=== PATIENT | female | born 1955 | race Caucasian/White ===

== ENCOUNTER 2016-11-01 14:25 | Inpatient (IN) ==
[2016-11-01] MEDS ORDERED: Sodium Chloride 0.9% 1,000 ML PRIMARY IV ONE (14:40)
[2016-11-01] MEDS ORDERED: ONDANSETRON 4 MG/2 ML VIAL IVP ONE (14:40)
[2016-11-01] MEDS ORDERED: NORMAL SALINE 10 ML SYRINGE FLUSH IVP PRN ×3 (14:40→20:32)
[2016-11-01] MEDS ORDERED: MORPHINE SULFATE 4 MG/1 ML IVP ONE ×3 (14:40→16:32)
--- NOTE | 2016-11-01 14:50 | PDOC ---
Abdomen/Flank HPI - General Chief Complaint: Abdomen Pain Stated Complaint: ABD PAIN Date Seen by Provider: 11/01/16 Time Seen by Provider: 14:47 - History of Present Illness Initial Comments: This patient is a very nice 61-year-old woman who presents to the emergency department with increasing low abdominal pain through the day today. Apparently this morning she felt well and went about her daily routine had a bowel movement in the morning which is not uncommon for her that began to have some pain after this bowel movement. She tried to have another bowel movement thinking that it might be related to this and did but had increasing pain thereafter. Her pain is continued to increase through the afternoon and she decided to come into the emergency department for evaluation. She has not noticed any dysuria. She's not had any history of abdominal surgeries at all. She has never had colonoscopy or upper endoscopy. She denies any nausea or vomiting with this. She denies any right upper quadrant pain and focuses all infraumbilical and low abdominal as far as her symptoms. - Patient Home Medications Home Medications: Home Medications Losartan [Cozaar] 25 mg PO DAILY 11/01/16 metFORMIN Tab [Glucophage Tab] 850 mg PO DAILY 11/01/16 - Patient Allergies Allergies/Adverse Reactions: Allergies Allergy/AdvReac Type Severity Reaction Status Date / Time Penicillins Allergy NOT Verified 11/01/16 14:35 APPLICABLE Past Medical History - heen HEENT History: Denies History Cardiovascular History: Denies History Respiratory History: Denies History Gastrointestinal History: Denies History Genitourinary History: Denies History Musculoskeletal History: Denies History Prosthesis or Implant: (joint replacement) Neurological History: Denies History Psychiatric History: Denies History Past Medical History Reviewed: Reviewed - No Changes ROS - Limitations ROS Limitations: No Limitations Constitution: REPORTS: Denies Symptoms Cardiovascular: REPORTS: Denies Cardiac Symptoms Respiratory: REPORTS: Denies Resp Symptoms Abdominal/Flank Pain PE - General Appearance General Appearance: POSITIVE: Alert, Cooperative, No Acute Distress - HEENT HEENT: POSITIVE: Head Inspection Nml, Eyes Inspection Nml - Respiratory Respiratory: POSITIVE: No Respiratory Distress, Breath Sounds Normal - Cardiovascular Cardiovascular: POSITIVE: Regular Rate and Rhythm, Heart Sounds Normal - Abdomen Additional Abdominal Details: She has substantial guarding and tenderness with palpation of the low abdomen below the umbilicus both right and left lower quadrants. Bowel sounds are present. No significant distention noted. Abdomen Progress - Results Reviewed by me Xrays/CTs/US Reviewed by me: Yes Discussed with Radiologist: Yes Radiology Findings: CT of the abdomen shows free air pockets throughout the low abdomen. Lab Results Reviewed: Yes Lab Results:: Laboratory Results 11/01/16 Range/Units 15:02 WBC 11.42 H (4.8-10.8) 10^3/uL RBC 4.57 (4.20-5.40) 10^6/uL Hgb 13.6 (12.0-16.0) g/dL Hct 41.3 (37.0-47.0) % MCV 90.4 (81-99) FL MCH 29.8 (27-31) PG MCHC 32.9 L (33-37) g/dL RDW Std Deviation 44.3 (39-50) fL RDW Coeff of Berta 13.8 (11.5-14.5) % Plt Count 271 (140-350) 10*3/uL MPV 9.2 (7.4-12.2) FL Immature Gran % (Auto) 0.2 (0-5) % Neut % (Auto) 81.4 H (50-80) % Lymph % (Auto) 14.3 (10-50) % [place] % (Auto) 2.1 L (5-15) % Eos % (Auto) 1.8 (0-8) % Baso % (Auto) 0.2 (0-1) % Immature Gran # (Auto) 0.02 10*3/UL Neut # (Auto) 9.30 10*3/UL Lymph # (Auto) 1.63 10*3/uL [place] # (Auto) 0.24 L (0.3-0.8) 10*3/UL Eos # (Auto) 0.21 10*3/UL Baso # (Auto) 0.02 10*3/UL WBC Morphology Comment Normal morphology (NORM) Plt Morphology Comment Normal morphology (NORM) RBC Morph Comment Normal morphology (NORM) Sodium 141 (135-145) meq/L Potassium 4.0 (3.8-5.2) meq/L Chloride 104 (98-112) meq/L Carbon Dioxide 24 (23-33) meq/L Anion Gap 13 (5-20) BUN 21 (7-22) mg/dL Creatinine 0.8 (0.50-1.20) mg/dL Estimated GFR > 60 (>60 ml/min/1.73m(2)) BUN/Creatinine Ratio 26.25 H (6-20) Glucose 125 H (78-110) mg/dL Calculated Osmolality 295.0 H (267-292) mOsm/kg Calcium 10.0 (8.7-10.7) mg/dL Total Bilirubin 0.6 (0.3-1.2) mg/dL AST 35 (8-39) IU/L ALT 36 (9-52) IU/L Alkaline Phosphatase 96 (38-126) IU/L Total Protein 7.3 (6.1-8.0) g/dL Albumin 4.4 (3.5-4.8) g/dL Globulin 2.9 (2.50-4.10) g/dL Albumin/Globulin Ratio 1.50 (1.3-2.0) mg/g Amylase 87 (30-110) U/L Lipase 80 (23-300) IU/L - Patient's Progress MDM / ED Course: Patient was having substantial abdominal pain CT scan of the abdomen and pelvis was ordered in addition to some lab work. Lab work shows an elevated white blood cell count CT scan shows free air in the abdomen. Patient was given multiple doses of morphine to try to control her pain and general surgery is been consulted. Patient will be admitted to the hospital for further management potentially for surgical intervention. Patient Care Time - Estimated PCT Patient Care Time (In Minutes): 45 Vital Signs - Recent Vital Signs Vital Signs: Vital Signs (Last 8 hours) Temp Pulse Resp BP Pulse Ox 11/01/16 14:25 96.6 F L 74 20 113/64 94 - VS Reviewed Vital Signs Reviewed: Yes Discharge Clinical Impression: Perforated abdominal viscus Discharge Disposition: Admit to Inpatient Condition: Stable Follow Up With: NONE,NONE [Primary Care Provider] - Date Decision to Admit to Inpatient: 11/01/16 Time Decision to Admit to Inpatient: 17:44
[2016-11-01 15:06] LABS: BASOPHILS # (AUTO) 0.02 10*3/UL; BASOPHILS % (AUTO) 0.2 % (0-1); EOSINOPHILS # (AUTO) 0.21 10*3/UL; EOSINOPHILS % (AUTO) 1.8 % (0-8); Hematocrit [HCT] 41.3 % (37.0-47.0); Hemoglobin [HGB] 13.6 g/dL (12.0-16.0); LYMPHOCYTES # (AUTO) 1.63 10*3/uL; MEAN CORPUSCULAR HEMOGLOBIN 29.8 PG (27-31); MEAN CORPUSCULAR HGB CONC 32.9 g/dL (33-37); MEAN CORPUSCULAR VOLUME 90.4 FL (81-99); MEAN PLATELET VOLUME 9.2 FL (7.4-12.2); MONOCYTES # (AUTO) 0.24 10*3/UL (0.3-0.8); MONOCYTES % (AUTO) 2.1 % (5-15); NEUTROPHILS % (AUTO) 81.4 % (50-80); RED BLOOD COUNT 4.57 10^6/uL (4.20-5.40)
[2016-11-01 15:08] LABS: PLATELET MORPHOLOGY COMMENT NORMAL MORPHOLOGY (NORM); RBC MORPHOLOGY COMMENT NORMAL MORPHOLOGY (NORM); WBC MORPHOLOGY COMMENT NORMAL MORPHOLOGY (NORM)
[2016-11-01 15:13] LABS: BLOOD UREA NITROGEN 21 mg/dL (7-22); BUN/CREATININE RATIO 26.25 (6-20); SERUM ALBUMIN 4.4 g/dL (3.5-4.8)
[2016-11-01 15:14] LABS: LIPASE 80 IU/L (23-300)
[2016-11-01] MEDS ORDERED: Ertapenem Inj 1 GM in Sodium Chloride 0.9% 100 ML IV ONE (17:20)
--- NOTE | 2016-11-01 17:41 | DI ---
CT ABDOMEN SCAN WITH IV CONTRAST, 11/01/2016 2:53 PM : Clinical History: Lower abdominal pain. Previous Exam: None at this facility. Scans are performed from the lower lung bases through the liver and kidneys with IV contrast. 95 ml o f Isovue 300 was injected IV. No oral or rectal contrast was ordered. The lung bases are clear. Mild fatty infiltration is present in the liver diffusely. The liver is oth erwise normal. The gallbladder is grossly normal. There is free air in the upper abdomen. The stomach , duodenum, and proximal small bowel are normal. There is no abnormality of the spleen, pancreas, and adrenal glands. Both kidneys are normal in size, shape, position and contour. There is no hydronephr osis or hydroureter. No renal or ureteral calculi are present. There are no abnormal retrocrural or p eriaortic nodes. No ascites is present. READIN. There is free air in the upper abdomen without evidence of ascites. The stomach, duodenum, and pr oximal small bowel have a normal appearance. 2. Mild fatty infiltration of the liver. CT PELVIS SCAN WITH IV CONTRAST, 11/01/2016 2:53 PM: Clinical History: See above. Previous Exam: None at this facility. Scans are performed from just superior to the umbilicus to the symphysis pubis with IV contrast. This is the same bolus of contrast used for the CT scans of the abdomen. Scans through the lower abdomen and pelvis show no masses. There are multiple small gas bubbles withi n the mesentery in the lower abdomen and pelvic regions. A small amount of ascites is present in the pelvis. There is no adenopathy. The appendix is normal. There are loops of small bowel in the posteri or aspect of the pelvis that may show slight inflammation but there is no dilatation. The colon shows no evidence of diverticulitis. There is a small umbilical hernia through which only mesenteric fat h as herniated. The patient is status post hysterectomy and bilateral salpingo-oophorectomy. READIN. There is a small amount of free air and free fluid in the pelvis. No evidence of diverticulitis i s noted. The appendix is normal. 2. There is a loop of small bowel in the posterior aspect of the pelvis that may show minimal increa sed enhancement but there is no periserosal inflammatory change.
[2016-11-01] MEDS ORDERED: MIDAZOLAM 5 MG/1 ML ONE (18:27)
[2016-11-01] MEDS ORDERED: KETAMINE 100 MG/1 ML - 5 ML ONE (18:27)
[2016-11-01] MEDS ORDERED: fentaNYL Inj 250 MCG/5 ML VIAL ONE ×2 (18:27→19:25)
[2016-11-01] MEDS ORDERED: Sodium Chloride 0.9% vial 10 ML ONE ×2 (18:28→19:00)
[2016-11-01] MEDS ORDERED: ROCURONIUM 10 MG/1 ML - 5 ML VIAL IVP ONE (18:30)
[2016-11-01] MEDS ORDERED: Lactated Ringers 1,000 ML PRIMARY IV SCH ×2 (18:45→20:45)
--- NOTE | 2016-11-01 18:45 | CONSULT ---
Consult Note - Consult Consult Date: 11/01/16 Reason for Consult: PreOp Consulation : General Surgery Requesting Physician: Dr. Mueller Primary Care Provider: NONE NONE - History of Present Illness History of Present Illness: Patient is a 61-year-old [place] out [place] staying at a local camping area. She felt well this morning when she woke up. She had a normal yogurt breakfast. She had a bowel movement and voided. She went about some activities and started feeling like she needs to go the bathroom again. She reports she urinated and had a bowel movement again. It breakfast a little bit later in the morning. She noticed some mild discomfort in her lower abdomen. She then developed increasing pain. She had another bowel movement and now her pain increased significantly. She had a very uncomfortable ride to the hospital. She was evaluated in the emergency room. Her white count was elevated at 11,400. CT was done which shows free air within her abdomen. She has been given a gram of Invanz. She has been given 3 different doses of 4 mg of morphine. The morphine does not stop her pain. Patient denies reflux or dyspepsia. She does take Aleve approximately every other day. She has never been on a proton pump inhibitor or H2 aldo. She is also not had a colonoscopy. She has had a vaginal hysterectomy. Her ovaries are in place. At the present time the patient's reports her main pain is behind the umbilicus. She's had no nausea, vomiting, fever, chills, diarrhea, or constipation. She's never had a pain like this before. She denies vaginal discharge. She denies urinary tract infection symptoms. Reviewing the CT scan with the radiologist shows the bubbles of free air in the abdomen. The largest ones are at and above the umbilicus. There are smaller bubbles of free air in the lower abdomen. There is no free air around her stomach or duodenum. There is some fluid around her appendix. Appendix is normal in size. There is no free air near her appendix. She has a few diverticuli but there is no significant inflammation around the sigmoid colon. There is possibly a loop of abnormal small bowel. There are no obvious inflammatory changes. It is unclear where the free air is coming from. Review of Systems - Constitutional Constitutional: REPORTS: General Health Excellent - Gastrointestinal Gastrointestinal / Abdominal: REPORTS: Abdominal Pain, See HPI Past Medical History Medical History: Elevated A1c. Hypertension. Surgical History: Vaginal hysterectomy, ovaries in place. Right total knee. Left second hammer toe surgery. Tobacco Use: Never Smoker Substance Use Type: None Alcohol Use: Occasionally Medication / Allergies Home Medications: Home Medications Medication Instructions Recorded Confirmed Type Losartan [Cozaar] 25 mg PO DAILY 11/01/16 11/01/16 History metFORMIN Tab [Glucophage Tab] 850 mg PO DAILY 11/01/16 11/01/16 History Allergies/Adverse Reactions: Allergies Allergy/AdvReac Type Severity Reaction Status Date / Time Penicillins Allergy NOT Verified 11/01/16 14:35 APPLICABLE Exam - Vitals Vital Signs: Vital Signs Temperature 96.6 F Temperature Source Temporal Artery Scan Pulse Rate [Pulse Oximeter] 74 Respiratory Rate 20 Blood Pressure [Left Arm] 113/64 Pulse Ox 94 Oxygen Delivery Method Room Air Height 5 ft 10 in Weight 99.79 kg - General General Appearance: POSITIVE: No Acute Distress, Cooperative - Respiratory Respiratory Exam: POSITIVE: Clear to Auscultation - Bilaterally, Breathing Non Labored - Cardiovascular Cardiovascular Exam: POSITIVE: RRR, Systolic Murmur - GI/Abdominal GI/Abdominal Exam: POSITIVE: Non Distended, Firm, Guarding, Diminished Bowel Sounds, No Masses, Rebound Additional GI/Abdominal Exam Details: Most tenderness is below her umbilicus. She is diffusely tender throughout the lower abdomen. There is voluntary guarding and rebound. Upper abdomen much less tender. - Rectal Rectal Exam: POSITIVE: Deferred - Neurological Neurological Exam: POSITIVE: Alert, Oriented x 3 - Psychiatric Psychiatric Exam: POSITIVE: Normal Affect, Normal Mood - Integumentary Integumentary Exam: POSITIVE: Normal Color, Warm, Dry Results - Labs CBC and BMP: 11/01/16 15:02 11/01/16 15:02 Labs - Last 24 Hours: Laboratory Results 11/01/16 Range/Units 15:02 WBC 11.42 H (4.8-10.8) 10^3/uL RBC 4.57 (4.20-5.40) 10^6/uL Hgb 13.6 (12.0-16.0) g/dL Hct 41.3 (37.0-47.0) % MCV 90.4 (81-99) FL MCH 29.8 (27-31) PG MCHC 32.9 L (33-37) g/dL RDW Std Deviation 44.3 (39-50) fL RDW Coeff of Berta 13.8 (11.5-14.5) % Plt Count 271 (140-350) 10*3/uL MPV 9.2 (7.4-12.2) FL Immature Gran % (Auto) 0.2 (0-5) % Neut % (Auto) 81.4 H (50-80) % Lymph % (Auto) 14.3 (10-50) % [place] % (Auto) 2.1 L (5-15) % Eos % (Auto) 1.8 (0-8) % Baso % (Auto) 0.2 (0-1) % Immature Gran # (Auto) 0.02 10*3/UL Neut # (Auto) 9.30 10*3/UL Lymph # (Auto) 1.63 10*3/uL [place] # (Auto) 0.24 L (0.3-0.8) 10*3/UL Eos # (Auto) 0.21 10*3/UL Baso # (Auto) 0.02 10*3/UL WBC Morphology Comment Normal morphology (NORM) Plt Morphology Comment Normal morphology (NORM) RBC Morph Comment Normal morphology (NORM) Sodium 141 (135-145) meq/L Potassium 4.0 (3.8-5.2) meq/L Chloride 104 (98-112) meq/L Carbon Dioxide 24 (23-33) meq/L Anion Gap 13 (5-20) BUN 21 (7-22) mg/dL Creatinine 0.8 (0.50-1.20) mg/dL Estimated GFR > 60 (>60 ml/min/1.73m(2)) BUN/Creatinine Ratio 26.25 H (6-20) Glucose 125 H (78-110) mg/dL Calculated Osmolality 295.0 H (267-292) mOsm/kg Calcium 10.0 (8.7-10.7) mg/dL Total Bilirubin 0.6 (0.3-1.2) mg/dL AST 35 (8-39) IU/L ALT 36 (9-52) IU/L Alkaline Phosphatase 96 (38-126) IU/L Total Protein 7.3 (6.1-8.0) g/dL Albumin 4.4 (3.5-4.8) g/dL Globulin 2.9 (2.50-4.10) g/dL Albumin/Globulin Ratio 1.50 (1.3-2.0) mg/g Amylase 87 (30-110) U/L Lipase 80 (23-300) IU/L - Imaging Status: Image Reviewed by Me (And discussed with the radiologist.), Report Reviewed by Me Assessment and Plan - Patient Problems (1) Perforated abdominal viscus Current Visit: Yes Status: Acute Priority: High Diagnosis Date: 11/01/16 Comment: The etiology of her free air is unclear. It is unclear based on her clinical history and physical examination as well as her CT scan. Most likely possibilities a perforated appendicitis, perforated peptic ulcer, perforated small bowel, or perforated diverticular disease. We will proceed with laparoscopy/laparotomy as soon as possible. The procedure has been discussed with the patient in complete yet simple terms including benefits, risks, and alternatives. All questions have been answered. Informed consent has been obtained. She understands she may have a temporary colostomy if this is perforated diverticular disease. She has also been given the opportunity to be transferred to a tertiary care center where all of her procedure might be done laparoscopically. My plan is to do a laparoscopy to identify the source of the free air and then make an appropriate incision to deal with it unless it is a perforated appendix which will be removed laparoscopically.
[2016-11-01] MEDS ORDERED: BUPIVACAINE 0.25% W/ EPI - 10 ML VIAL ONE (19:01)
[2016-11-01] MEDS ORDERED: ESMOLOL HCL 100 MG/10 ML VIAL ONE (19:23)
[2016-11-01] MEDS ORDERED: ePHEDrine Inj 50 MG/ML AMP ONE (19:34)
[2016-11-01] MEDS ORDERED: REMIFENTANIL 1 MG/1 ML IV ONE (20:06)
[2016-11-01] MEDS ORDERED: Prochlorperazine Edisylate Inj 10mg/2ml vial IVP PRN (20:32)
[2016-11-01] MEDS ORDERED: ONDANSETRON 4 MG/2 ML VIAL IVP PRN ×2 (20:32→22:56)
[2016-11-01] MEDS ORDERED: fentaNYL Inj 100 MCG/2 ML VIAL IVP PRN (20:32)
[2016-11-01] MEDS ORDERED: Ondansetron ODT Tab 8 MG TAB PO PRN (20:32)
[2016-11-01] MEDS ORDERED: Sodium Chloride 0.9% 2,000 ML ONE (20:37)
[2016-11-01] MEDS ORDERED: METOPROLOL TARTRATE 5 MG/5 ML VIAL ONE (20:45)
[2016-11-01] MEDS ORDERED: NEOSTIGMINE 1 MG/1 ML - 10 ML ONE (21:28)
[2016-11-01] MEDS ORDERED: GLYCOPYRROLATE 0.2 MG/1 ML VIAL ONE (21:29)
[2016-11-01] MEDS ORDERED: KETOROLAC 30 MG/1 ML VIAL ONE (21:33)
--- NOTE | 2016-11-01 21:56 | GEN.OPNOTE ---
Operative Note Surgery Date: 11/01/16 Preoperative Diagnosis: Perforated viscus with free intra-abdominal air. Postoperative Diagnosis: Perforated diverticular disease. Procedure: #1 diagnostic laparoscopy. #2 Sigmoid colectomy with end colostomy and closure of the distal segment-Talib procedure. #3 appendectomy secondary to fecaliths. Surgeon: Raimundo Brown MD Jockey Agent: Matheus Buenrostro MD Anesthesia Provider: Michaela Hsieh CRNA Anesthesia Type: General Estimated Blood Loss (mL): 200 Fluids: 4000 mL of crystalloid. Patient had a gram of Invanz at 6 PM. Patient got 30 mg of IV Toradol at the end of the procedure. Urine output 80 mL during the procedure. Pathology: Specimens to pathology included the resected sigmoid colon as well as the appendix. Indications: Acute abdominal tenderness with acute surgical abdomen. CT scan shows free air. Findings: Perforated diverticular disease. Free intraperitoneal pus. Appendix with multiple fecaliths. Status post hysterectomy. Complications: None. Operative Summary: The patient was taken to the operating room and placed on the operating table in the supine position. Following the induction of general anesthetic the abdomen was prepped and draped in a sterile fashion. Surgical timeout was done. The infraumbilical area was infiltrated with 1/4% Marcaine with epinephrine. A small incision was made. The abdominal wall was elevated. A Veress needle was placed without apparent injury and a pneumoperitoneum was induced. A 10 mm trocar was placed under direct visualization. The laparoscope was inserted. A 5 mm trocar was placed in the suprapubic area after infiltration with 1/4% Marcaine with epinephrine. The upper abdomen showed no evidence of any inflammatory changes or free fluid. The anterior wall of the stomach and duodenum was unremarkable. The appendix itself was unremarkable. There was pus in the pelvis. The small bowel showed no evidence of disease other than serosal inflammatory changes from the pus. At this point I felt this was secondary to perforated diverticular disease. The laparoscope was removed. The CO2 was removed. All trochars were removed and we prepared for exploratory laparotomy. A midline incision was made in the lower abdomen. This was extended above the umbilicus. This was carried down through the thick subcutaneous tissue with electrocautery. The fascia was incised in the midline with electrocautery. The peritoneum was elevated and incised. A large Titi retractor was placed. Appropriate packing was done. Irrigation was performed. The small bowel was removed from the pelvis. The appendix was normal but there were multiple fecaliths. I opted to do an appendectomy. The mesoappendix was taken down by serially clamping, dividing, and ligating the mesoappendix. A clamp was placed across the base of the appendix. It was unclamped and moved distally. The base of the appendix was tied off with 0 Vicryl. The appendix was amputated. The stump was cauterized. The stump was inverted into the cecum with a Z- plasty suture of 2-0 Vicryl. Attention was turned to the sigmoid colon. There was what appeared to be a single perforation with pus and air leaving the bowel. There was a small area of necrosis. The rest of the sigmoid colon looked fine. The sigmoid colon was mobilized by taking down the peritoneal reflection. Approximately a 4 inch piece of colon was isolated. It was cleared proximally of the paracolonic fatty tissue. The proximal bowel was transected with a linear stapler. The distal transection site was chosen. It was cleared of the paracolonic tissue. A linear stapler was placed across it and closed and fired. A clamp was placed on the proximal bowel. The colon was transected sharply. The mesocolon was taken down by serially clamping dividing and ligating the colonic vessels with 0 Vicryl sutures. The specimen was removed from the operative field. The distal stump was tacked to the left lateral peritoneum with a suture of 2-0 Prolene for ease of identification in the future. There is some adhesions from the distal colon to fallopian tubes and the vaginal stump. The proximal colon was mobilized by taking down the peritoneal reflection. There was adequate length to pass it through the abdominal wall. Extensive irrigation was performed. I believe I used 7 L of fluid to irrigate the abdomen. Hemostasis was assured. The Titi retractor was removed. A colostomy site was chosen. A [place] of skin was removed. A plug of subcutaneous tissue was removed down to the fascia. The fascia was incised in a cruciate fashion. The descending colon was passed through the fascial defect and there was adequate length to perform a colostomy. Final irrigation and suctioning were performed. Final check for hemostasis was done. The bowel was returned to a relative anatomic position and covered with the omentum. The midline fascia was closed with running #1 Prolene. A suture was started both superiorly and inferiorly. These were tied independently. The subcutaneous tissue was extensively irrigated. The wound was closed with surgical mikey followed by an appropriate dressing. Attention was turned to the colostomy site. The staple line was excised. The colostomy was matured using 3-0 Vicryl sutures. An appropriate appliance was placed. The patient tolerated all aspects of the procedure well without complication. She was taken to the recovery room in stable condition. All counts were correct. Patient Problems - Patient Problem List (1) Perforated abdominal viscus Current Visit: Yes Status: Acute Diagnosis Date: 11/01/16 Priority: High
[2016-11-01] MEDS ORDERED: Lactated Ringers 1,000 ML PRIMARY IV ONE (22:09)
[2016-11-01] MEDS ORDERED: HYDROmorphone 2 MG/1 ML ONE (22:12)
[2016-11-01] MEDS: HYDROmorphone 2 MG/1 ML IVP PRN ×3 (22:14→22:26)
[2016-11-01] MEDS ORDERED: NALOXONE 0.4 MG/1 ML VIAL IVP PRN (22:56)
[2016-11-01] MEDS ORDERED: PCA-Peripheral (Reflex Set) 1 EACH MIS IV PRN (22:56)
[2016-11-02] MEDS: D5-1/2NS + 20mEq KCL 1,000 ML PRIMARY IV SCH ×3 (00:19→21:18)
[2016-11-02] MEDS: MORPHINE PCA 1 MG/ML IV SCH ×2 (00:20→10:24)
[2016-11-02] MEDS: KETOROLAC 15 MG/1 ML VIAL IVP SCH ×4 (03:09→21:15)
[2016-11-02 04:59] LABS: BASOPHILS # (AUTO) 0.06 10*3/UL; BASOPHILS % (AUTO) 0.3 % (0-1); EOSINOPHILS # (AUTO) 0 10*3/UL; EOSINOPHILS % (AUTO) 0 % (0-8); Hematocrit [HCT] 36.2 % (37.0-47.0); Hemoglobin [HGB] 12.1 g/dL (12.0-16.0); LYMPHOCYTES # (AUTO) 1.16 10*3/uL; MEAN CORPUSCULAR HEMOGLOBIN 30.7 PG (27-31); MEAN CORPUSCULAR HGB CONC 33.4 g/dL (33-37); MEAN CORPUSCULAR VOLUME 91.9 FL (81-99); MEAN PLATELET VOLUME 9.6 FL (7.4-12.2); MONOCYTES # (AUTO) 0.49 10*3/UL (0.3-0.8); MONOCYTES % (AUTO) 2.5 % (5-15); NEUTROPHILS # (AUTO) 17.98 10*3/UL; RED BLOOD COUNT 3.94 10^6/uL (4.20-5.40)
[2016-11-02 05:13] LABS: BLOOD UREA NITROGEN 22 mg/dL (7-22); SERUM ALBUMIN 3.6 g/dL (3.5-4.8)
[2016-11-02 05:25] LABS: PLATELET MORPHOLOGY COMMENT NORMAL MORPHOLOGY (NORM); RBC MORPHOLOGY COMMENT NORMAL MORPHOLOGY (NORM); WBC MORPHOLOGY COMMENT NORMAL MORPHOLOGY (NORM)
[2016-11-02] MEDS: Pantoprazole Inj 40 MG in Normal Saline Flush 10 ML IVP SCH (08:17)
--- NOTE | 2016-11-02 10:15 | PDOC(PROG) ---
Subjective Post Op Day: 1 Pain Management: Peripheral DESIGN VERIFICATION ENGINEER Lamas Catheter: Yes Flatus: No Diet: Clear Liquids Ambulating: Yes Date and Time of Service: 11/02/2016 10 AM Interval History: Reports she feels much better than preop. No specific complaints. Pain when she moves. Overall comfortable and resting. Has ambulated several times. Is working on incentive spirometer. Tolerating ice chips. White count is increased to 19,000+. Afebrile. Patient was noted to have a systolic ejection murmur in the emergency room yesterday. It persists today. She reports she had a cardiac echo a year ago. She did not know she had a cardiac murmur. We will get the results of the cardiac echo from the [facility]. It is probably a functional murmur. If he didn't have a murmur on her last cardiac echo she will need follow-up when she returns home. Objective : Data - Labs CBC and BMP: 11/02/16 04:12 11/02/16 04:12 Labs - Last 24 Hours: Laboratory Results 11/02/16 Range/Units 04:12 WBC 19.74 H (4.8-10.8) 10^3/uL RBC 3.94 L (4.20-5.40) 10^6/uL Hgb 12.1 (12.0-16.0) g/dL Hct 36.2 L (37.0-47.0) % MCV 91.9 (81-99) FL MCH 30.7 (27-31) PG MCHC 33.4 (33-37) g/dL RDW Std Deviation 46.3 (39-50) fL RDW Coeff of Berta 14.1 (11.5-14.5) % Plt Count 246 (140-350) 10*3/uL MPV 9.6 (7.4-12.2) FL Immature Gran % (Auto) 0.3 (0-5) % Neut % (Auto) 91.0 H (50-80) % Lymph % (Auto) 5.9 L (10-50) % [place] % (Auto) 2.5 L (5-15) % Eos % (Auto) 0 (0-8) % Baso % (Auto) 0.3 (0-1) % Immature Gran # (Auto) 0.05 10*3/UL Neut # (Auto) 17.98 10*3/UL Lymph # (Auto) 1.16 10*3/uL [place] # (Auto) 0.49 (0.3-0.8) 10*3/UL Eos # (Auto) 0 10*3/UL Baso # (Auto) 0.06 10*3/UL WBC Morphology Comment Normal morphology (NORM) Plt Morphology Comment Normal morphology (NORM) RBC Morph Comment Normal morphology (NORM) Sodium 138 (135-145) meq/L Potassium 4.7 (3.8-5.2) meq/L Chloride 108 (98-112) meq/L Carbon Dioxide 20 L (23-33) meq/L Anion Gap 10 (5-20) BUN 22 (7-22) mg/dL Creatinine 0.8 (0.50-1.20) mg/dL Estimated GFR > 60 (>60 ml/min/1.73m(2)) BUN/Creatinine Ratio 27.50 H (6-20) Glucose 153 H (78-110) mg/dL Calculated Osmolality 291.0 (267-292) mOsm/kg Calcium 8.7 (8.7-10.7) mg/dL Total Bilirubin 0.7 (0.3-1.2) mg/dL AST 36 (8-39) IU/L ALT 28 (9-52) IU/L Alkaline Phosphatase 57 (38-126) IU/L Total Protein 6.1 (6.1-8.0) g/dL Albumin 3.6 (3.5-4.8) g/dL Globulin 2.5 (2.50-4.10) g/dL Albumin/Globulin Ratio 1.40 (1.3-2.0) mg/g - Vital Signs Vital Signs and I&O: Vital Signs - Last Taken Temperature 97.7 F 11/02/16 06:45 Pulse Rate 94 11/02/16 06:45 Respiratory Rate 20 11/02/16 08:00 Blood Pressure 98/62 11/02/16 06:45 Pulse Ox 95 11/02/16 07:00 Intake and Output (24hr x 4 totals) 10/31/16 11/01/16 11/02/16 11/03/16 05:59 05:59 05:59 05:59 Intake Total 5102 120 Output Total 500 Balance 4602 120 Objective : Exam - General General Appearance: No Acute Distress, Cooperative - Respiratory Respiratory Exam: Clear to Auscultation - Bilaterally, Breathing Non Labored - Cardiovascular Cardiovascular Exam: RRR, Systolic Murmur - GI/Abdominal GI/Abdominal Exam: Non Distended, Soft, Hypoactive Bowel Sounds Additional GI/Abdominal Exam Details: Ostomy is pink and viable. No output. Dressing is clean and dry and intact. Has incisional tenderness. No peritoneal signs. - Neurological Neurological Exam: Alert, Oriented x 3 - Psychiatric Psychiatric Exam: Normal Affect, Normal Mood Assessment and Plan - Patient Problems (1) Status post Talib's procedure Current Visit: Yes Status: Acute Priority: High Diagnosis Date: 11/01/16 Comment: Doing very well postoperatively. Continue ambulation and incentive spirometry. Start clear liquids slowly. Monitor for return of normal bowel function. (2) Perforated abdominal viscus Current Visit: Yes Status: Acute Priority: High Diagnosis Date: 11/01/16 Comment: Perforated diverticular disease. (3) Systolic ejection murmur Current Visit: Yes Status: Acute Priority: Low Diagnosis Date: 11/01/16 Comment: Patient will call the clinic in her home town and have her most recent cardiac echo report sent by fax. Will need follow-up with her primary care provider after discharge. I spoke with the hospitalist. As she is asymptomatic no need to do a cardiac echo this admission pending the report from her prior cardiac echo a year ago.
--- NOTE | 2016-11-02 10:49 | CRNA.PROGR ---
Anesthesia Note Anesthesia Progress Note: Sitting Up in bed eating jello. Cheerful, states she's comfortable. Has ambulated around the nurses station times 2. Urinary catheter still in, not anxious to get it out. No nausea. Pleased with care so far. Encouraged ambulation. Encouraged incentive spirometry. Laboratory Results 11/01/16 11/02/16 Range/Units 15:02 04:12 WBC 11.42 H 19.74 H (4.8-10.8) 10^3/uL RBC 4.57 3.94 L (4.20-5.40) 10^6/uL Hgb 13.6 12.1 (12.0-16.0) g/dL Hct 41.3 36.2 L (37.0-47.0) % MCV 90.4 91.9 (81-99) FL MCH 29.8 30.7 (27-31) PG MCHC 32.9 L 33.4 (33-37) g/dL RDW Std Deviation 44.3 46.3 (39-50) fL RDW Coeff of Berta 13.8 14.1 (11.5-14.5) % Plt Count 271 246 (140-350) 10*3/uL MPV 9.2 9.6 (7.4-12.2) FL Immature Gran % (Auto) 0.2 0.3 (0-5) % Neut % (Auto) 81.4 H 91.0 H (50-80) % Lymph % (Auto) 14.3 5.9 L (10-50) % [place] % (Auto) 2.1 L 2.5 L (5-15) % Eos % (Auto) 1.8 0 (0-8) % Baso % (Auto) 0.2 0.3 (0-1) % Immature Gran # (Auto) 0.02 0.05 10*3/UL Neut # (Auto) 9.30 17.98 10*3/UL Lymph # (Auto) 1.63 1.16 10*3/uL [place] # (Auto) 0.24 L 0.49 (0.3-0.8) 10*3/UL Eos # (Auto) 0.21 0 10*3/UL Baso # (Auto) 0.02 0.06 10*3/UL WBC Morphology Comment Normal morphology Normal morphology (NORM) Plt Morphology Comment Normal morphology Normal morphology (NORM) RBC Morph Comment Normal morphology Normal morphology (NORM) Sodium 141 138 (135-145) meq/L Potassium 4.0 4.7 (3.8-5.2) meq/L Chloride 104 108 (98-112) meq/L Carbon Dioxide 24 20 L (23-33) meq/L Anion Gap 13 10 (5-20) BUN 21 22 (7-22) mg/dL Creatinine 0.8 0.8 (0.50-1.20) mg/dL Estimated GFR > 60 > 60 (>60 ml/min/1.73m(2)) BUN/Creatinine Ratio 26.25 H 27.50 H (6-20) Glucose 125 H 153 H (78-110) mg/dL Calculated Osmolality 295.0 H 291.0 (267-292) mOsm/kg Calcium 10.0 8.7 (8.7-10.7) mg/dL Total Bilirubin 0.6 0.7 (0.3-1.2) mg/dL AST 35 36 (8-39) IU/L ALT 36 28 (9-52) IU/L Alkaline Phosphatase 96 57 (38-126) IU/L Total Protein 7.3 6.1 (6.1-8.0) g/dL Albumin 4.4 3.6 (3.5-4.8) g/dL Globulin 2.9 2.5 (2.50-4.10) g/dL Albumin/Globulin Ratio 1.50 1.40 (1.3-2.0) mg/g Amylase 87 (30-110) U/L Lipase 80 (23-300) IU/L Intake and Output - 8hr Totals Only 11/01/16 11/01/16 11/02/16 11/02/16 13:59 21:59 05:59 13:59 Intake Total 5100 1102 360 Output Total 280 220 Balance 4820 882 360 No apparent anesthetic difficulties.
[2016-11-02] MEDS: NORMAL SALINE 10 ML SYRINGE FLUSH IVP PRN ×2 (15:33→21:19)
[2016-11-02] MEDS: Ertapenem Inj 1 GM in Sodium Chloride 0.9% 100 ML IV SCH (17:48)
[2016-11-03] MEDS: KETOROLAC 15 MG/1 ML VIAL IVP SCH ×4 (03:31→22:00)
[2016-11-03 03:39] LABS: BASOPHILS # (AUTO) 0.01 10*3/UL; BASOPHILS % (AUTO) 0.1 % (0-1); EOSINOPHILS # (AUTO) 0.22 10*3/UL; EOSINOPHILS % (AUTO) 1.9 % (0-8); Hematocrit [HCT] 30.8 % (37.0-47.0); Hemoglobin [HGB] 9.7 g/dL (12.0-16.0); LYMPHOCYTES # (AUTO) 1.75 10*3/uL; MEAN CORPUSCULAR HEMOGLOBIN 29.4 PG (27-31); MEAN CORPUSCULAR HGB CONC 31.5 g/dL (33-37); MEAN CORPUSCULAR VOLUME 93.3 FL (81-99); MEAN PLATELET VOLUME 9.3 FL (7.4-12.2); MONOCYTES # (AUTO) 0.46 10*3/UL (0.3-0.8); MONOCYTES % (AUTO) 3.9 % (5-15); NEUTROPHILS # (AUTO) 9.26 10*3/UL
[2016-11-03 03:47] LABS: PLATELET MORPHOLOGY COMMENT NORMAL MORPHOLOGY (NORM); RBC MORPHOLOGY COMMENT NORMAL MORPHOLOGY (NORM); WBC MORPHOLOGY COMMENT NORMAL MORPHOLOGY (NORM)
[2016-11-03 03:51] LABS: BLOOD UREA NITROGEN 20 mg/dL (7-22)
[2016-11-03] MEDS: D5-1/2NS + 20mEq KCL 1,000 ML PRIMARY IV SCH (07:25)
[2016-11-03] MEDS: Pantoprazole Inj 40 MG in Normal Saline Flush 10 ML IVP SCH (08:33)
[2016-11-03] MEDS: MORPHINE PCA 1 MG/ML IV SCH (10:13)
--- NOTE | 2016-11-03 11:23 | PDOC(PROG) ---
Subjective Post Op Day: 2 Pain Management: Peripheral WET END TESTER Lamas Catheter: Yes Flatus: No Diet: Clear Liquids Ambulating: Yes Date and Time of Service: 11/03/2016 11 AM Interval History: She looks great. She reports she feels better than yesterday. Tolerating clear liquids without nausea. Ambulating frequently. Pain is well controlled. No flatus or stool via her stoma. Ostomy teaching has not yet started. Stoma is viable. A systolic cardiac murmur was noticed on admission. Records from her clinic at home states she had a systolic ejection murmur in 01/2015 as well as 11/2015. They will follow-up on that when she returns home. Objective : Data - Labs CBC and BMP: 11/03/16 03:34 11/03/16 03:34 Labs - Last 24 Hours: Laboratory Results 11/03/16 Range/Units 03:34 WBC 11.72 H (4.8-10.8) 10^3/uL RBC 3.30 L (4.20-5.40) 10^6/uL Hgb 9.7 L (12.0-16.0) g/dL Hct 30.8 L (37.0-47.0) % MCV 93.3 (81-99) FL MCH 29.4 (27-31) PG MCHC 31.5 L (33-37) g/dL RDW Std Deviation 47.0 (39-50) fL RDW Coeff of Berta 14.2 (11.5-14.5) % Plt Count 198 (140-350) 10*3/uL MPV 9.3 (7.4-12.2) FL Immature Gran % (Auto) 0.2 (0-5) % Neut % (Auto) 79.0 (50-80) % Lymph % (Auto) 14.9 (10-50) % [place] % (Auto) 3.9 L (5-15) % Eos % (Auto) 1.9 (0-8) % Baso % (Auto) 0.1 (0-1) % Immature Gran # (Auto) 0.02 10*3/UL Neut # (Auto) 9.26 10*3/UL Lymph # (Auto) 1.75 10*3/uL [place] # (Auto) 0.46 (0.3-0.8) 10*3/UL Eos # (Auto) 0.22 10*3/UL Baso # (Auto) 0.01 10*3/UL WBC Morphology Comment Normal morphology (NORM) Plt Morphology Comment Normal morphology (NORM) RBC Morph Comment Normal morphology (NORM) Sodium 134 L (135-145) meq/L Potassium 4.2 (3.8-5.2) meq/L Chloride 103 (98-112) meq/L Carbon Dioxide 25 (23-33) meq/L Anion Gap 6 (5-20) BUN 20 (7-22) mg/dL Creatinine 0.8 (0.50-1.20) mg/dL Estimated GFR > 60 (>60 ml/min/1.73m(2)) BUN/Creatinine Ratio 25.00 H (6-20) Glucose 115 H (78-110) mg/dL Calculated Osmolality 281.0 (267-292) mOsm/kg Calcium 9.1 (8.7-10.7) mg/dL - Vital Signs Vital Signs and I&O: Vital Signs - Last Taken Temperature 97.3 F 11/03/16 07:14 Pulse Rate 86 11/03/16 07:14 Respiratory Rate 18 11/03/16 09:00 Blood Pressure 121/69 11/03/16 07:14 Pulse Ox 97 11/03/16 07:14 Intake and Output (24hr x 4 totals) 11/01/16 11/02/16 11/03/16 11/04/16 05:59 05:59 05:59 05:59 Intake Total 5102 4403 360 Output Total 500 1100 Balance 4602 3303 360 Objective : Exam - General General Appearance: No Acute Distress, Cooperative - Respiratory Respiratory Exam: Clear to Auscultation - Bilaterally, Breathing Non Labored - Cardiovascular Cardiovascular Exam: No Murmur - GI/Abdominal GI/Abdominal Exam: Normal Bowel Sounds, Non Distended, Soft Additional GI/Abdominal Exam Details: Stoma is viable. No output. Dressing is clean and dry and intact. Incisional tenderness only. It is minimal. - Neurological Neurological Exam: Alert, Oriented x 3 - Psychiatric Psychiatric Exam: Normal Affect, Normal Mood Assessment and Plan - Patient Problems (1) Status post Talib's procedure Current Visit: Yes Status: Acute Priority: High Diagnosis Date: 11/01/16 Comment: Doing very well. No significant output from her stoma. Good bowel tones. Pain well controlled. No nausea. We'll advance to a full liquid diet. We'll change her to oral medications. We will DC her Lamas catheter and Hep- Lock her IV. Check labs in the morning. (2) Perforated abdominal viscus Current Visit: Yes Status: Acute Priority: High Diagnosis Date: 11/01/16 Comment: See above. Postop. Stable. (3) Systolic ejection murmur Current Visit: Yes Status: Acute Priority: Low Diagnosis Date: 11/01/16 Comment: Present when she was examined in the clinic in January 2015 and November 2015. Follow-up on return home.
[2016-11-03] MEDS ORDERED: KETOROLAC 15 MG/1 ML VIAL IVP SCH (11:36)
[2016-11-03] MEDS: oxyCODONE-ACETAMINOPHEN 5-325 TAB PO PRN ×3 (12:04→20:07)
[2016-11-03] MEDS: NORMAL SALINE 10 ML SYRINGE FLUSH IVP PRN ×2 (16:28→17:47)
[2016-11-03] MEDS: Ertapenem Inj 1 GM in Sodium Chloride 0.9% 100 ML IV SCH (17:47)
[2016-11-03] MEDS: metFORMIN 850 MG TABLET PO SCH (20:33)
[2016-11-04] MEDS: oxyCODONE-ACETAMINOPHEN 5-325 TAB PO PRN ×6 (00:06→20:53)
[2016-11-04] MEDS: KETOROLAC 15 MG/1 ML VIAL IVP SCH (04:10)
[2016-11-04 04:41] LABS: BASOPHILS # (AUTO) 0.02 10*3/UL; BASOPHILS % (AUTO) 0.2 % (0-1); EOSINOPHILS # (AUTO) 0.48 10*3/UL; EOSINOPHILS % (AUTO) 5.4 % (0-8); Hematocrit [HCT] 29.2 % (37.0-47.0); Hemoglobin [HGB] 9.4 g/dL (12.0-16.0); LYMPHOCYTES # (AUTO) 1.94 10*3/uL; MEAN CORPUSCULAR HEMOGLOBIN 29.7 PG (27-31); MEAN CORPUSCULAR HGB CONC 32.2 g/dL (33-37); MEAN CORPUSCULAR VOLUME 92.4 FL (81-99); MEAN PLATELET VOLUME 9.8 FL (7.4-12.2); MONOCYTES # (AUTO) 0.36 10*3/UL (0.3-0.8); MONOCYTES % (AUTO) 4.1 % (5-15); NEUTROPHILS # (AUTO) 6.01 10*3/UL; NEUTROPHILS % (AUTO) 68.2 % (50-80); RED BLOOD COUNT 3.16 10^6/uL (4.20-5.40)
[2016-11-04 04:47] LABS: PLATELET MORPHOLOGY COMMENT NORMAL MORPHOLOGY (NORM); RBC MORPHOLOGY COMMENT NORMAL MORPHOLOGY (NORM); WBC MORPHOLOGY COMMENT NORMAL MORPHOLOGY (NORM)
[2016-11-04 04:51] LABS: BLOOD UREA NITROGEN 15 mg/dL (7-22); BUN/CREATININE RATIO 21.42 (6-20)
[2016-11-04] MEDS: LOSARTAN 25 MG TABLET PO SCH (08:14)
[2016-11-04] MEDS: PANTOPRAZOLE 40 MG TABLET PO SCH (08:14)
[2016-11-04] MEDS: metFORMIN 850 MG TABLET PO SCH ×2 (08:16→17:33)
--- NOTE | 2016-11-04 08:53 | PDOC(PROG) ---
Subjective Post Op Day: 3 Pain Management: PO Lamas Catheter: No Flatus: Yes Diet: Clear Liquids (And full liquids) Ambulating: Yes Date and Time of Service: 11/04/2016 8:48 AM Interval History: Reports she is doing very well. Feels better today than she has so far. She looks great. She is ambulating. She is tolerating a full liquid diet. Her stoma is putting out air and stool. The colostomy appliance has not yet been changed. No specific complaints or concerns. Her white blood count has returned to normal. Objective : Data - Labs CBC and BMP: 11/04/16 04:12 11/04/16 04:12 Labs - Last 24 Hours: Laboratory Results 11/04/16 Range/Units 04:12 WBC 8.82 (4.8-10.8) 10^3/uL RBC 3.16 L (4.20-5.40) 10^6/uL Hgb 9.4 L (12.0-16.0) g/dL Hct 29.2 L (37.0-47.0) % MCV 92.4 (81-99) FL MCH 29.7 (27-31) PG MCHC 32.2 L (33-37) g/dL RDW Std Deviation 44.7 (39-50) fL RDW Coeff of Berta 13.7 (11.5-14.5) % Plt Count 205 (140-350) 10*3/uL MPV 9.8 (7.4-12.2) FL Immature Gran % (Auto) 0.1 (0-5) % Neut % (Auto) 68.2 (50-80) % Lymph % (Auto) 22.0 (10-50) % [place] % (Auto) 4.1 L (5-15) % Eos % (Auto) 5.4 (0-8) % Baso % (Auto) 0.2 (0-1) % Immature Gran # (Auto) 0.01 10*3/UL Neut # (Auto) 6.01 10*3/UL Lymph # (Auto) 1.94 10*3/uL [place] # (Auto) 0.36 (0.3-0.8) 10*3/UL Eos # (Auto) 0.48 10*3/UL Baso # (Auto) 0.02 10*3/UL WBC Morphology Comment Normal morphology (NORM) Plt Morphology Comment Normal morphology (NORM) RBC Morph Comment Normal morphology (NORM) Sodium 135 (135-145) meq/L Potassium 4.4 (3.8-5.2) meq/L Chloride 104 (98-112) meq/L Carbon Dioxide 25 (23-33) meq/L Anion Gap 6 (5-20) BUN 15 (7-22) mg/dL Creatinine 0.7 (0.50-1.20) mg/dL Estimated GFR > 60 (>60 ml/min/1.73m(2)) BUN/Creatinine Ratio 21.42 H (6-20) Glucose 96 (78-110) mg/dL Calculated Osmolality 280.0 (267-292) mOsm/kg Calcium 9.4 (8.7-10.7) mg/dL - Vital Signs Vital Signs and I&O: Vital Signs - Last Taken Temperature 97.5 F 11/04/16 04:45 Pulse Rate 77 11/04/16 04:45 Respiratory Rate 16 11/04/16 04:45 Blood Pressure 128/69 11/04/16 04:45 Pulse Ox 93 11/04/16 05:19 Intake and Output (24hr x 4 totals) 11/02/16 11/03/16 11/04/16 11/05/16 05:59 05:59 05:59 05:59 Intake Total 5102 4403 2006 Output Total 500 1100 2700 200 Balance 4602 3303 -694 -200 Objective : Exam - General General Appearance: No Acute Distress, Cooperative - Respiratory Respiratory Exam: Clear to Auscultation - Bilaterally, Breathing Non Labored - Cardiovascular Cardiovascular Exam: RRR, No Murmur - GI/Abdominal GI/Abdominal Exam: Normal Bowel Sounds, Non Distended, Soft Additional GI/Abdominal Exam Details: Stoma is viable and functioning. Incision looks good. Incisional tenderness only. There is some bruising of the abdominal wall near her ostomy. - Neurological Neurological Exam: Alert, Oriented x 3 - Psychiatric Psychiatric Exam: Normal Affect, Normal Mood Assessment and Plan - Patient Problems (1) Status post Talib's procedure Current Visit: Yes Status: Acute Priority: High Diagnosis Date: 11/01/16 Comment: Doing well. Patient will shower today and the nursing staff will teach appliance care and changing. Prescription written for appliances and ostomy supplies. We'll advance to a regular diet. Probably ready for discharge in the next day or 2 when she is comfortable caring for her ostomy. (2) Perforated abdominal viscus Current Visit: Yes Status: Acute Priority: High Diagnosis Date: 11/01/16 Comment: See above. (3) Systolic ejection murmur Current Visit: Yes Status: Acute Priority: Low Diagnosis Date: 11/01/16 Comment: Chronic. Follow-up with primary care provider at home.
[2016-11-04] MEDS: Ertapenem Inj 1 GM in Sodium Chloride 0.9% 100 ML IV SCH (17:47)
[2016-11-05] MEDS: oxyCODONE-ACETAMINOPHEN 5-325 TAB PO PRN ×6 (00:25→23:43)
[2016-11-05] MEDS: PANTOPRAZOLE 40 MG TABLET PO SCH (07:42)
[2016-11-05] MEDS: metFORMIN 850 MG TABLET PO SCH ×2 (07:42→16:55)
[2016-11-05] MEDS: LOSARTAN 25 MG TABLET PO SCH (08:40)
--- NOTE | 2016-11-05 12:34 | PDOC(PROG) ---
Subjective Post Op Day: postop day 4 Pain Management: PO [place] Catheter: No Flatus: Yes Date and Time of Service: 11/07/2016 at 1235 Interval History: Patient is is having incisional pain otherwise doing fine. Has not changed her colostomy bag as of yet Objective : Data - Labs CBC and BMP: 11/04/16 04:12 11/04/16 04:12 - Vital Signs Vital Signs and I&O: Vital Signs - Last Taken Temperature 97.5 F 11/05/16 12:04 Pulse Rate 83 11/05/16 12:04 Respiratory Rate 20 11/05/16 12:04 Blood Pressure 136/78 11/05/16 12:04 Pulse Ox 93 11/05/16 12:04 Intake and Output (24hr x 4 totals) 11/03/16 11/04/16 11/05/16 11/06/16 05:59 05:59 05:59 05:59 Intake Total 4403 2006 3940 360 Output Total 1100 2700 3850 700 Balance 3303 -694 90 -340 Objective : Exam - General General Appearance: No Acute Distress, Cooperative - Eye Eye Exam: PERRL, EOMI - Respiratory Respiratory Exam: Clear to Auscultation - Bilaterally - GI/Abdominal GI/Abdominal Exam: Normal Bowel Sounds, Non Tender, Non Distended, Soft Additional GI/Abdominal Exam Details: Ostomy is pink and functioning. Incision clean dry nonerythematous Assessment and Plan - Patient Problems (1) Status post Talib's procedure Current Visit: Yes Status: Acute Priority: High Diagnosis Date: 11/01/16 (2) Perforation of sigmoid colon due to diverticulitis Current Visit: Yes Status: Acute - Assessment / Plan Additional Assessment/Plan Details: Patient is doing fine. Need to try to get her pain little bit better controlled. Also do better colostomy teaching and training
[2016-11-05] MEDS: Ertapenem Inj 1 GM in Sodium Chloride 0.9% 100 ML IV SCH (18:51)
[2016-11-05] MEDS: NORMAL SALINE 10 ML SYRINGE FLUSH IVP PRN (18:52)
[2016-11-05] MEDS: IBUPROFEN 800 MG TABLET PO PRN (21:27)
[2016-11-06] MEDS: oxyCODONE-ACETAMINOPHEN 5-325 TAB PO PRN ×6 (04:23→23:43)
[2016-11-06] MEDS: metFORMIN 850 MG TABLET PO SCH ×2 (07:04→16:24)
[2016-11-06] MEDS: PANTOPRAZOLE 40 MG TABLET PO SCH (07:04)
[2016-11-06] MEDS: LOSARTAN 25 MG TABLET PO SCH (08:00)
--- NOTE | 2016-11-06 11:45 | PDOC(PROG) ---
Subjective Post Op Day: 5 Pain Management: PO Flatus: Yes Diet: Regular Date and Time of Service: 11/06/2016 at 1145 Interval History: Patient states that she had a rough night last night. She had behind on her pain medication. She is feeling better today. She denies any fever or chills Objective : Data - Labs CBC and BMP: 11/04/16 04:12 11/04/16 04:12 - Vital Signs Vital Signs and I&O: Vital Signs - Last Taken Temperature 97.4 F 11/06/16 11:34 Pulse Rate 80 11/06/16 11:34 Respiratory Rate 19 11/06/16 11:34 Blood Pressure 128/80 11/06/16 11:34 Pulse Ox 93 11/06/16 11:34 Intake and Output (24hr x 4 totals) 11/04/16 11/05/16 11/06/16 11/07/16 05:59 05:59 05:59 05:59 Intake Total 2005 3940 1900 755 Output Total 2700 3850 3900 Balance -694 -1999 755 Objective : Exam - General General Appearance: No Acute Distress, Cooperative Assessment and Plan - Patient Problems (1) Status post Talib's procedure Current Visit: Yes Status: Acute Priority: High Diagnosis Date: 11/01/16 (2) Perforation of sigmoid colon due to diverticulitis Current Visit: Yes Status: Acute - Assessment / Plan Additional Assessment/Plan Details: Patient is postop day 5 from having a colectomy for diverticulitis. She is overall doing very well. Still needs teaching on colostomy care. Will switch over to oral medications.
[2016-11-06] MEDS: Amoxicill/Clav 875/125mg Tab 1 TAB TAB PO SCH (20:11)
[2016-11-06] MEDS ORDERED: SIMETHICONE 80 MG TABLET PO PRN (21:53)
[2016-11-06] MEDS: IBUPROFEN 800 MG TABLET PO PRN (21:57)
[2016-11-07] MEDS: oxyCODONE-ACETAMINOPHEN 5-325 TAB PO PRN ×3 (03:49→12:07)
[2016-11-07] MEDS: PANTOPRAZOLE 40 MG TABLET PO SCH (07:30)
[2016-11-07] MEDS: metFORMIN 850 MG TABLET PO SCH (07:30)
[2016-11-07 07:37] VITALS: RESP 18; TEMP 97.2
[2016-11-07] MEDS: Amoxicill/Clav 875/125mg Tab 1 TAB TAB PO SCH (09:42)
[2016-11-07] MEDS: LOSARTAN 25 MG TABLET PO SCH (09:42)
--- NOTE | 2016-11-07 10:21 | DCSUMMARY ---
Discharge Summary Admit Date: 11/01/16 Discharge Date: 11/07/16 Admitting Diagnosis: perforated viscus Discharge Diagnosis: Perforated colon secondary diverticulitis Primary Surgery and Date: November 01 she had a colectomy with end colostomy ( Talib's procedure) Hospital Course: Patient was admitted on the November 01 2016 and underwent a diagnostic laparoscopy. Is found that she had a free perforation of the sigmoid colon secondary diverticulitis. There was pus poured out of the diverticulum. She then was converted and had a sigmoid colectomy with end colostomy (Talib's procedure). Her hospital course is actually very well. She was having mainly gas pains. This seems to be taken care of with Gas-X. She has had a soft abdomen. Vital signs stable. White count is was been within normal limits since her surgery. Patient is continued on Augmentin for 2 week course. Part of this is secondary to her having an artificial knee. Patient is Is able take care of the colostomy without any problems. Condition on discharge was stable and improved. [place] therefore she'll follow up with the surgeon of her choosing in [place]. She has or to contact her primary care doctor is open reestablishes care. And she has trouble finding a surgeon to take care of her she can come back to [place] will take care of her Exam - Vitals Vital Signs: Vital Signs Temperature 97.2 F Temperature Source Temporal Artery Scan Pulse Rate [Apical] 76 Pulse Rate [Pulse Oximeter] 72 Respiratory Rate [abdomen] 18 Respiratory Rate 18 Blood Pressure [Right Arm] 123/80 Blood Pressure [Left Arm] 141/83 Pulse Ox 93 Oxygen Flow Rate [abdomen] 1.5 Oxygen Flow Rate 1 Oxygen Delivery Method Room Air Height 5 ft 10 in Weight 106.05 kg - General General Appearance: POSITIVE: No Acute Distress, Cooperative - Neck Neck Exam: POSITIVE: Full ROM - Respiratory Respiratory Exam: POSITIVE: Clear to Auscultation - Bilaterally - Cardiovascular Cardiovascular Exam: POSITIVE: RRR - GI/Abdominal GI/Abdominal Exam: POSITIVE: Normal Bowel Sounds, Non Tender, Non Distended, Soft Additional GI/Abdominal Exam Details: Incision clean dry nonerythematous Patient Problems - Patient Problem List (1) Status post Talib's procedure Current Visit: Yes Status: Acute Diagnosis Date: 11/01/16 Priority: High (2) Perforation of sigmoid colon due to diverticulitis Current Visit: Yes Status: Acute
== END 2016-11-07 15:14 | disposition home or self-care (01) | DRG 330 ==
LOC: ER 14:25 → OPS 18:42 → MED/SURG 22:13
PROVIDERS: ADMIT Surgery; ATTEND Surgery